=== PATIENT | female | born 1990 | race Caucasian/White ===

== ENCOUNTER → 2018-09-05 14:22 | Outpatient (CLI) | payer BC, SELFPAY ==
[2018-09-05 15:07] LABS: Basophils % 0.5 % (0.1-2.0); Eosinophils # 0.1 K/mm3 (0.0-0.4); Eosinophils % 0.8 % (0.1-12.0); Hematocrit 41.3 % (37.0-47.0); Hemoglobin 14.3 g/dL (12.2-16.2); Lymphocytes # 2.1 K/mm3 (0.7-4.5); Lymphocytes % 26.6 % (10-50); Mean Corpuscular HGB Conc 34.6 g/dL (31.8-35.4); Mean Corpuscular Hemoglobin 30.6 pg (27.0-31.2); Mean Corpuscular Volume 88.5 fl (81-99); Mean Platelet Volume 8.5 fl (7.4-10.4); Monocytes # 0.6 K/mm3 (0.1-1.0); Monocytes % 6.9 % (1.7-9.3); Neutrophils # 5.2 K/mm3 (1.8-7.8); Neutrophils % 65.1 % (37.0-80.0); Platelet Count 247 K/mm3 (142-424); Red Blood Count 4.67 M/mm3 (4.20-5.40); Red Cell Distribution Width 12.2 % (11.5-17.5)
[2018-09-05 18:16] LABS: HCG,Quantitative 784 mIU/mL
[2018-09-07 07:12] LABS: HIV Screen 4th Generation wRfx Non Reactive (Non Reactive)
[2018-09-07 08:12] LABS: Hepatitis B Surface Antigen Negative (Negative); Hepatitis C Antibody <0.1 s/co ratio (0.0-0.9)
[2018-09-07 14:42] LABS: Rapid Plasma Reagin Ab Titer Non Reactive (NonRea<1:1); Rubella Antibodies, IgG 1.74 index (Immune >0.99)
== END ==
PROVIDERS: Visit Provider Nurse Practitioner Obstetrics & Gynecology
DX: Z34.90 Encounter for supervision of normal pregnancy, unspecified, unspecified trimester (principal)
CPT/HCPCS: 36415; 84702; 85025; 86592; 86703; 86762; 86850; 87340; 87380; G0432

== ENCOUNTER → 2018-09-07 09:52 | Outpatient (CLI) | payer BC, SELFPAY ==
[2018-09-07 12:12] LABS: HCG,Quantitative 316 mIU/mL
== END ==
PROVIDERS: Visit Provider Nurse Practitioner Obstetrics & Gynecology
DX: O20.0 Threatened abortion (principal); Z34.90 Encounter for supervision of normal pregnancy, unspecified, unspecified trimester
CPT/HCPCS: 36415; 84702; 85461; 96372; J2790

== ENCOUNTER → 2018-09-12 08:51 | Outpatient (CLI) | payer BC, SELFPAY ==
--- NOTE | 2018-09-12 08:59 | US_ITS ---
US OB transvaginal HISTORY: Chantelle , evaluate for retained products of conception ITS.REASON: US OB Dates ORDERING PHYSICIAN: Andrew Lantigua MD PATIENT AGE: 27 years COMPARISON: None FINDINGS: The uterus is retroverted and measures 7 x 4 x 5 cm with a combined endometrial thickness of 5 mm. No evidence of retained products of conception. The right ovary measures 4 x 2 cm the left ovary measures 3 x 2 cm. Multiple small follicles are noted. No cul-de-sac fluid apparent. IMPRESSION: No evidence of retained products of conception, retroverted uterus, otherwise unremarkable pelvic ultrasound
== END ==
PROVIDERS: Visit Provider Nurse Practitioner Obstetrics & Gynecology
DX: O26.841 Uterine size-date discrepancy, first trimester (principal)
CPT/HCPCS: 76817

== ENCOUNTER → 2018-10-16 10:40 | Outpatient (CLI) | payer BC, SELFPAY ==
[2018-10-16 12:18] LABS: HCG,Quantitative 465 mIU/mL
== END ==
PROVIDERS: Visit Provider Nurse Practitioner Obstetrics & Gynecology
DX: Z32.00 Encounter for pregnancy test, result unknown (principal)
CPT/HCPCS: 36415; 84702

== ENCOUNTER → 2018-11-06 14:53 | Outpatient (CLI) | payer BC, SELFPAY ==
--- NOTE | 2018-11-06 14:54 | US_ITS ---
US OB transvaginal HISTORY: ITS.REASON: US OB Dates ORDERING PHYSICIAN: Andrew Lantigua MD PATIENT AGE: 27 years COMPARISON: None FINDINGS: An intrauterine gestational sac is present with a pole with a crown-rump length of 1.07 cmcm correlating to gestational age of 7 weeks 2 days. heart tones are present with an FHR of 154 bpm's. Yolk sac is noted. Unremarkable adnexa. IMPRESSION: Live intrauterine gestation with an average ultrasound age of 7 weeks 2 days. Estimated due date by ultrasound is 06/23/2019
== END ==
PROVIDERS: Visit Provider Nurse Practitioner Obstetrics & Gynecology
DX: O26.841 Uterine size-date discrepancy, first trimester (principal)
CPT/HCPCS: 76817

== ENCOUNTER → 2019-02-07 14:49 | Outpatient (CLI) | payer BC, SELFPAY ==
--- NOTE | 2019-02-07 14:58 | US_ITS ---
PROCEDURE: US OB /MATERNAL DETAIL CLINICAL INDICATION: us ob complete COMPARISON: OBTV US OB transvaginal from 11/06/2018 FINDINGS: Single viable intrauterine gestation. Cephalic position. Placenta: Posteriorplacenta grade 1. There is average amount fluid. The cervix appears satisfactory. Closed and measuring 5.3 centimeters in length. Complete survey performed and was unremarkable on the submitted images as in PACS. No discrete anomalies identified on survey imaging by technologist. Active fetus. Three-vessel cord with satisfactory umbilical cord insertion. 4- chamber heart noted. Survey of brain & ventricles Unremarkable. Face and neck survey unremarkable. Diaphragm and chest views unremarkable. Abdomen: Both kidneys noted and unremarkable. Stomach noted and satisfactory. Spine: Survey of the spine satisfactory with no anomalies identified nor imaged. Both arms and legs noted. Visualized portions of the anatomy are unremarkable. Amniotic Fluid: Adequate. Maternal adnexa: No significant findings. Measurements: Average ultrasound age 143 days. Gestational Age 143 days Estimated due date by ultrasound age 0206/24/2019. Estimated weight 369.6 gramsgrams. BPD = 4.57 centimeters equals 19 weeks 6 days. OFD = 6.16 centimeters equals 20 weeks 6 days. HC = 17.04 centimeters equals 19 weeks 5 days. AC = 15.58 centimeters equals FL = 20 weeks 6 days. 3.47 centimeters equals 21 weeks. Growth Percentile= 45.4 Percent% Heart Rate = 150 bpm Cerebellum = unremarkable. Humerus = unremarkable. HC/AC is 1.09 CI is 0.74 FL/BPD is 0.76 FL/AC is 0.22 IMPRESSION: Single intrauterine fetus in cephalic presentation with heart rate of 150 beats per minute and estimated gestational age (AUA) of 20 weeks and 3 days. Dictated by: Danny Sanderson 02/07/2019 16:32 Electronically signed by Danny Sanderson in [facility] 02/07/2019 16:32
== END ==
PROVIDERS: Visit Provider Nurse Practitioner Obstetrics & Gynecology
DX: Z36.0 Encounter for antenatal screening for chromosomal anomalies (principal)
CPT/HCPCS: 76811

== ENCOUNTER 2019-03-21 09:30 | Outpatient (CLI) | payer BC, SELFPAY ==
[2019-03-21 10:37] LABS: Glucose,Fasting 82 mg/dL (60-105)
[2019-03-21 11:17] VITALS: BP 117/79; PULSE 75; RESP 18
[2019-03-21 11:17] LABS: Glucose 1 Hour 132 mg/dL (74-106)
== END 2019-03-21 11:17 | disposition home or self-care (01) ==
LOC: LAB 09:31 → INF 11:13
PROVIDERS: Visit Provider Nurse Practitioner Obstetrics & Gynecology
DX: Z34.90 Encounter for supervision of normal pregnancy, unspecified, unspecified trimester (principal)
CPT/HCPCS: 36415; 82951; 96372; J2790

== ENCOUNTER → 2019-05-27 17:27 | Outpatient (CLI) | payer BC, SELFPAY | PROVIDERS: Visit Provider Nurse Practitioner Obstetrics & Gynecology | DX: Z34.90 Encounter for supervision of normal pregnancy, unspecified, unspecified trimester (principal) | CPT/HCPCS: 86403 ==

== ENCOUNTER 2019-07-01 05:06 | Inpatient (IN) ==
[2019-07-01 05:56] LABS: Microscopic, Urine URINE MICROSCOPIC (MICROSCOPIC)
[2019-07-01 05:56] LABS: Basophils % 0.3 % (0.1-2.0); Eosinophils # 0.2 K/mm3 (0.0-0.4); Eosinophils % 1.1 % (0.1-12.0); Hematocrit 34.8 % (37.0-47.0); Hemoglobin 11.5 g/dL (12.2-16.2); Lymphocytes # 3.5 K/mm3 (0.7-4.5); Lymphocytes % 26.7 % (10-50); Mean Corpuscular HGB Conc 32.9 g/dL (31.8-35.4); Mean Corpuscular Volume 91.8 fl (81-99); Monocytes # 0.8 K/mm3 (0.1-1.0); Monocytes % 6.1 % (1.7-9.3); Neutrophils # 8.7 K/mm3 (1.8-7.8); Neutrophils % 65.8 % (37.0-80.0); Platelet Count 243 K/mm3 (142-424); Red Blood Count 3.79 M/mm3 (4.20-5.40); Red Cell Distribution Width 13.5 % (11.5-17.5); White Blood Count 13.2 K/mm3 (4.8-10.8)
[2019-07-01 05:59] LABS: Appearance,Urine SL CLOUDY (Clear); Bilirubin,Urine Negative (Negative); Blood, Urine Negative (Negative); Color,Urine YELLOW (Yellow); Glucose,Urine (UA) Negative (Negative); Ketones,Urine Negative (Negative); Leukocyte Esterase,Urine Negative (Negative); PH,Urine 6.5 (5.0-8.5); Protein,Urine Negative (Negative); Specific Gravity, Urine 1.025 (1.005-1.030); Urobilinogen,Urine 0.2 EU/dl (0.2)
[2019-07-01 06:02] LABS: Amorphous Sediment,Urine 4+ /lpf
[2019-07-01 06:07] LABS: Anion Gap 10.4 mEq/L (5-15); Calcium 10.4 mg/dl (8.4-10.2); Uric Acid 5.2 mg/dl (2.5-6.2)
[2019-07-01 06:08] LABS: Activated Partial Thrombo Time 23.8 seconds (23.6-34.0); INR 0.93 (0.9-1.1); Prothrombin Time 9.7 seconds (9.4-11.8)
[2019-07-01 06:10] LABS: Barbiturates Screen,Urine Negative ng/ml (<200); Benzodiazepines Screen,Urine Negative ng/ml (<200)
[2019-07-01 06:11] LABS: Amphetamine/Metha Screen,Urine Negative ng/ml (<1000)
[2019-07-01 06:12] LABS: Cannabinoid Screen,Urine Negative ng/ml (<50); Cocaine Screen,Urine Negative ng/ml (<300)
[2019-07-01 06:13] LABS: Methadone Screen,Urine Negative ng/ml (<300); Opiate Screen,Urine Negative ng/ml (<300)
[2019-07-01 06:14] LABS: Phencyclidine Screen,Urine Negative ng/ml (<25)
--- NOTE | 2019-07-01 09:48 | Progress Note ---
Labor Note - Subjective: Date: 07/01/19 Time: 09:48 regular contraction - Objective: NST:: Reactive Contractions:: every 2-3 minutes Cervical Dilation:: 4 Effacement:: 90% Station: -1 Membranes: artificially ruptured - Fetus: Monitoring?: Yes monitoring type:: External - Assessment: Labor progressing?: Yes Cephalopelvic disproportion?: No Patient Problems: All Active Problems (Acute) - Plan: Anesthesia for epidural?: Yes Continue to labor down?: Yes Plan for ?: No Continue to monitor?: Yes Start pushing?: No
--- NOTE | 2019-07-01 10:38 | Progress Note ---
[facility] Anesthesia Checklist - Patient Identification Patient Identification: Arm Band - Structural Data Admitted From: Inpatient Planned Operative Procedure/s: labor epidural Consent for Planned Operative Procedure(s) Verified: Yes Verified Documents: Surgical Consent, History and Physical - NPO Status Verified Time NPO: 00:00 - Additional verifications Anesthesia Reactions: No - Airway Assessment C-Spine Mobility Assessed: Yes TMJ Mobility Assessed: Yes Dentition: Good Dentition - Neurological Assessment Level of Consciousness: Awake, Alert - Anesthesia Plan Anesthesia Risk discussed: Yes Anesthesia Plan: Verified ASA Class: II Anesthesia Type: Epidural [facility] History I have reviewed the patient's past medical history: Yes *Have you ever received a pneumonia vaccine?: No *Have you received a flu vaccine this season?: Yes Anesthesia experience/problems:: nac Laterality Cases: Bilateral: Tonsillectomy Other Surgeries: No: Amputation: No Fractures: No - *Social History Smoking Status: Never smoker Alcohol Intake: never Substance Use Type: denies use *Occupational Status:: employed Housing: house Household Members: spouse *Travel in the last 8 weeks: None Family Hx:: Cancer, Diabetes, Heart Attack, Hyperlipidemia, Hypertension Para: 0
--- NOTE | 2019-07-01 12:03 | Progress Note ---
Labor Note - Subjective: Date: 07/01/19 Time: 12:03 regular contraction - Objective: NST:: Reactive Contractions:: every 2-3 minutes Cervical Dilation:: 9-10 Effacement:: 100% Station: +2 Membranes: artificially ruptured - Fetus: Monitoring?: Yes monitoring type:: External - Assessment: Labor progressing?: Yes Cephalopelvic disproportion?: No Patient Problems: All Active Problems (Acute) - Plan: Anesthesia for epidural?: Yes Continue to labor down?: No Plan for ?: No Continue to monitor?: Yes Start pushing?: Yes
--- NOTE | 2019-07-01 12:06 | History & Physical Report ---
OB - H&P: HPI Antepartum - History of Present Illness Chief complaint: Postterm , mild -induced hypertension History of present illness: She is a 28-year-old 2 aborta 1 who is 40+ weeks gestational age. She was seen in my office last week and had a considerable amount of swelling in her face as well as a slight increase in her blood pressure. Initially it was elevated and then with rest it had recovered to normal. She also had brisk reflexes and 2 beats of clonus. As result of that we have elected to augment her labor today. She was found to be 4 cm dilated in my office. - History of Present Criteria for establishing EDC:: LMP confirmed by 1st trimester US care: good care Ultrasounds: normal 1st trimester US, normal mid trimester US Obstetrical complications: gestational hypertension [facility] History I have reviewed the patient's past medical history: Yes *Have you ever received a pneumonia vaccine?: No *Have you received a flu vaccine this season?: Yes Anesthesia experience/problems:: nac Laterality Cases: Bilateral: Tonsillectomy Other Surgeries: No: Amputation: No Fractures: No - *Social History Smoking Status: Never smoker Alcohol Intake: never Substance Use Type: denies use *Occupational Status:: employed Housing: house Household Members: spouse *Travel in the last 8 weeks: None Family Hx:: Cancer, Diabetes, Heart Attack, Hyperlipidemia, Hypertension Para: 0 Review of Systems - Review of Systems Review of systems:: pertinent systems reviewed and negative unless documented below Meds Home Medications Medication Instructions Recorded Confirmed Type loratadine 10 mg tablet 10 mg PO DAILYP PRN 09/05/18 07/01/19 History prenat.vits,wade,lqu-cvpu-sdbla 1 tab PO DAILY 09/05/18 07/01/19 History folic acid 0.8 mg capsule 0.8 mg PO DAILY 11/27/18 07/01/19 History RX: Ferrous Sulfate 325 mg PO DAILY 07/01/19 07/01/19 History Allergies Allergy/AdvReac Type Severity Reaction Status Date / Time hydrocodone Allergy Intermediate vomiting Verified 06/28/19 10:04 OB - H&P: Exam - Physical Exam Vital signs: Temp Pulse Resp BP Pulse Ox 98.3 F 94 H 16 125/89 96 07/01/19 07:17 07/01/19 07:17 07/01/19 07:17 07/01/19 07:17 07/01/19 07:17 - Constitutional no acute distress - Routine HEENT Exam Head: Present: normocephalic Eye: Present: EOMI, PERRL ENT: Present: mucous membranes moist - Routine Neck Exam Present: supple, full ROM - Routine Respiratory Exam Absent: accessory muscle use (good air entry bilaterally), respiratory distress, wheezes, crackles - Routine Cardiovascular Exam Present: RRR. Absent: murmur - Routine Abdominal Exam Present: soft, normoactive bowel sounds. Absent: tenderness, distended, guarding - Routine Rectal Exam Patient deferred: visual exam, digital exam - Routine Exam Patient deferred: external exam, groin exam, perineal exam - Routine Extremities Exam Present: full ROM. Absent: cyanosis, edema - Routine Skin Exam Present: intact. Absent: cyanosis - Routine Neurological Exam Present: alert, oriented X3 - Routine Psychiatric Exam Present: normal affect OB - Results - Labs Labs: Short CBC 07/01/19 Range/Units 05:45 WBC 13.2 H (4.8-10.8) K/mm3 Hgb 11.5 L (12.2-16.2) g/dL Hct 34.8 L (37.0-47.0) % Plt Count 243 (142-424) K/mm3 BMP 07/01/19 05:45 Sodium 134 L Potassium 3.4 L Chloride 106 Carbon Dioxide 21 L BUN 12 Creatinine 0.70 Glucose 105 H Calcium 10.4 H Liver Function 07/01/19 Range/Units 05:45 AST 23 (14-36) U/L ALT 17 (12-78) U/L Urine 07/01/19 Range/Units 05:20 Urine Color Yellow (Yellow) Urine Appearance Sl cloudy (Clear) Urine pH 6.5 (5.0-8.5) Ur Specific [place] 1.025 (1.005-1.030) Urine Protein Negative (Negative) Urine Glucose (UA) Negative (Negative) OB - A/P Antepartum (1) Post-term Current visit: Yes Status: Acute (2) induced hypertension Current visit: Yes Status: Acute - Additional Plan Planning to breastfeed?: Yes Plan: induction Additional Information:: She is currently 3 to 4 cm dilated and as result of that we will go ahead and augment her labor. Her blood pressures have been slightly up and down as well.
--- NOTE | 2019-07-01 12:10 | Progress Note ---
[facility] [place] Anesthesia Checklist - Patient Identification Patient Identification: Arm Band - Structural Data Admitted From: Home Planned Operative Procedure/s: colonoscopy Consent for Planned Operative Procedure(s) Verified: Yes Verified Documents: Surgical Consent, History and Physical - NPO Status Verified Time NPO: 00:00 - Additional verifications Anesthesia Reactions: No - Airway Assessment C-Spine Mobility Assessed: Yes (mp2) TMJ Mobility Assessed: Yes Dentition: Good Dentition - Neurological Assessment Level of Consciousness: Awake, Alert - Anesthesia Plan Anesthesia Risk discussed: Yes Anesthesia Plan: Verified ASA Class: II Anesthesia Type: MAC [facility] [place] History I have reviewed the patient's past medical history: Yes Medical History: Reports:: Anxiety, Hypertension *Have you ever received a pneumonia vaccine?: No *Have you received a flu vaccine this season?: Yes Other Medical History: Reports: Hypothyroidism Anesthesia experience/problems:: nac Laterality Cases: Bilateral: Tonsillectomy Other Surgeries: Yes: Tubal Ligation, Other. No: Amputation: No Fractures: No - *Social History Smoking Status: Never smoker Alcohol Intake: never Substance Use Type: denies use *Occupational Status:: employed Housing: house Household Members: spouse *Travel in the last 8 weeks: None Family Hx:: Cancer, Diabetes, Heart Attack, Hyperlipidemia, Hypertension Para: 0
--- NOTE | 2019-07-01 13:39 | Procedure Note ---
- Delivery Note Delivery Date:: 07/01/19 Delivery Time:: 13:17 Anesthesia Type: Epidural Was labor medically induced?: Yes Induction method: per pitocin protocol Gestational age (weeks): 40 Infant delivered prior to 39 weeks?: No Justification for early elective delivery:: Gestational Hypertension, Post term Gender: Female at 1 minute: 8 at 5 minutes: 8 LAC or MLE?: LAC Delivery Procedure:: She is a 28-year-old 2 para 0 at 40+ weeks gestational age. Her blood pressure was slightly elevated so we elected to induce her labor postterm. She was started on IV oxytocin had her membranes ruptured. Under labor epidural she progressed to full dilation and delivered with the assistance of outlet forceps a liveborn female child at 1:17 PM in the afternoon of July 01, 2019. The descent seem to be stalled so I elected to apply forceps. The patient was also quite fatigued. I applied forceps in the direct OA position and had previously emptied her bladder with a straight catheter. I used Allen forceps with pads. Using a long gentle pull I was able to easily deliver the head. There was a loose nuchal cord which was reduced. This was followed by the anterior shoulder and the rest the 's body atraumatically. The baby was vigorous and we suctioned the mouth and nasopharynx. We allowed the cord to continue to pulsate for approximately 1 minute. The cord is then doubly clamped and cut and the was placed on the mother's abdomen for further care. The nurses assigned Apgars of 8 at 1 minute and 9 at 5 minutes. We then obtained cord pH as well as cord blood. She received IV oxytocin. Using gentle traction on the cord and countertraction on the fundus I was able to easily deliver the placenta intact. It had a normal three-vessel cord. She had bilateral labial tears that were repaired with interrupted running 3-0 Vicryl Rapide suture. She has O Rh- blood, she is rubella immune and was group B streptococcus negative. She plans to breast-feed. Her sales service manager is Dr. Lee. Estimated blood loss was approximately 600 cc. Laceration:: labial Placental Delivery Description: Spontaneous
[2019-07-02 07:00] LABS: Hematocrit 26.3 % (37.0-47.0)
--- NOTE | 2019-07-02 08:17 | Progress Note ---
Internal Medicine - PN: Subj *Date: 07/02/19 *Time: 08:16 Interval history: She is doing very well this morning. She is eating and drinking and ambulating. She is breast-feeding. Her lochia is normal. Her pain is well controlled. She still has some perineal discomfort. Exam Vital signs and Labs for Last 24 Hours: Temp Pulse Resp BP Pulse Ox 97.6 F 101 H 18 121/83 98 07/01/19 15:45 07/01/19 15:45 07/01/19 15:45 07/01/19 15:45 07/01/19 15:45 Laboratory Results - last 24 hr 07/01/19 05:20: Urine Color Yellow, Urine Appearance Sl cloudy, Urine pH 6.5, Ur Specific [place] 1.025, Urine Protein Negative, Urine Glucose (UA) Negative, Urine Ketones Negative, Urine Blood Negative, Urine Nitrate Negative, Urine Bilirubin Negative, Urine Urobilinogen 0.2, Ur Leukocyte Esterase Negative, Ur Squamous Epith Cells 10-20, Amorphous Sediment 4+ 07/01/19 05:20: Urine Opiates Screen Negative, Urine Methadone Screen Negative, Ur Barbituates Screen Negative, Ur Phencyclidine Scrn Negative, Ur Amphetamines Screen Negative, U Benzodiazepines Scrn Negative, Urine Cocaine Screen Negative, U Marijuana (THC) Screen Negative 07/01/19 05:45: Blood Type O Negative, Antibody Screen Positive 07/01/19 13:20: Cord ABG pH 7.29 L 07/02/19 06:24: Hgb 9.0 L, Hct 26.3 L 07/02/19 06:24: Blood Type O Negative, Antibody Screen Negative, Baby's Rh Status Positive 07/02/19 07:59: Rhogam Infusion Rhogam release I & O for Last 24 hours: Intake & Output 06/29/19 06/30/19 07/01/19 07/02/19 11:59 11:59 11:59 11:59 Weight 169 lb - Constitutional no acute distress - *Routine HEENT Exam Head: Present: normocephalic Eye: Present: EOMI, PERRL ENT: Present: mucous membranes moist Assessment and Plan (1) Post-term Current visit: Yes Status: Acute Category: Medical Code(s): O48.0 - Post- term (2) induced hypertension Current visit: Yes Status: Acute Category: Medical Code(s): O13.9 - Gestational [-induced] hypertension without significant proteinuria, unspecified trimester (3) Forceps delivery Current visit: Yes Status: Acute Category: Medical Code(s): O75.9 - Complication of labor and delivery, unspecified - Assessment and plan all Dx Assessment and Plan for all problems:: She is doing well this morning. She will receive RhoGam. We will plan to send her home tomorrow.
[2019-07-02 16:35] VITALS: BP 116/64
--- NOTE | 2019-07-03 10:00 | Discharge Summary ---
General - General Admission date:: 07/01/19 Discharge date: 07/03/19 HPI HPI: She is a 28-year-old 2 para 0 who was 40+ weeks gestational age. She had slightly elevation her blood pressure and swelling. As result of that we elected her deliver her. She was also postdates. Hospital Course Hospital Course: She was started on IV oxytocin had her membranes ruptured. Under labor epidural she progressed to full dilation and delivered with the assistance of I would like forceps a liveborn female child at 1:17 PM in the afternoon of July 01, 2019. She has done well and has remained afebrile throughout her hospitalization. She is eating and drinking and ambulating. She is breast- feeding. The baby weighed 8 pounds 9 ounces and was 20 inches long. She had Apgars of 8 at 1 minute and 9 at 5 minutes. She has O Rh- blood and has received RhoGam. She is rubella immune and was group B streptococcus negative. She is discharged home to follow-up with me in approximately 2 weeks time. She was given the usual instructions with SPECT to limiting her activity, driving and sexual activity. She will continue with her vitamins and iron. Her condition on discharge is stable and improved. Rhogam Administration: Given Objective Vital signs: Temp Pulse Resp BP Pulse Ox 98.4 F 103 H 18 116/64 98 07/02/19 16:18 07/02/19 16:18 07/02/19 16:18 07/02/19 16:18 07/02/19 16:18 no acute distress DS: Diagnosis - Discharge Diagnosis (1) Post-term Status: Acute (2) induced hypertension Status: Acute (3) Forceps delivery Status: Acute Discharge Plan - Patient Discharge Instructions ACTIVITY: No heavy lifting DIET: continue same diet Additional Instructions: FOLLOW-UP WITH DR. LANTIGUA 07/16/2019 AT 11:15 NO HEAVY LIFTING, NO STRENUOUS ACTIVITY, NOTHING IN THE VAGINA FOR 6 WEEKS. Patient Instructions: Depression, Hemorrhage, DI for Labor and Delivery, Vaginal , [facility] Post Discharge Instructions - Follow up Plan Follow up with: Andrew Lantigua MD [Staff Physician] - Disposition: Home, Self-Group Home Medications: Home Medications Medication Instructions Recorded Confirmed Type loratadine 10 mg tablet 10 mg PO DAILYP PRN 09/05/18 07/01/19 History prenat.vits,wade,kui-vgst-umxai 1 tab PO DAILY 09/05/18 07/01/19 History folic acid 0.8 mg capsule 0.8 mg PO DAILY 11/27/18 07/01/19 History Ferrous Sulfate 325 mg PO DAILY 07/01/19 07/01/19 History Prescriptions/Medication Reconciliation: Continued loratadine 10 mg tablet 10 mg PO DAILYP PRN PRN Reason: ALLERGY SYMPTOMS folic acid 0.8 mg capsule 0.8 mg PO DAILY prenat.vits,wade,cna-kuyc-xvtyc 1 tab PO DAILY Ferrous Sulfate 325 mg PO DAILY - Problem Reconciliation Problems Reviewed?: Yes
--- NOTE | 2019-07-03 11:47 | Progress Note ---
Labor Note - Subjective: Date: 07/03/19 Time: 11:46 regular contraction - Objective: NST:: Reactive Contractions:: every 2-3 minutes Cervical Dilation:: 6 Effacement:: 100% Station: -1 Membranes: artificially ruptured - Fetus: Monitoring?: Yes monitoring type:: External - Assessment: Labor progressing?: Yes Cephalopelvic disproportion?: No Patient Problems: All Active Problems Post-term (Acute) induced hypertension (Acute) Forceps delivery (Acute) (Acute) - Plan: Anesthesia for epidural?: No Continue to labor down?: Yes Plan for ?: No Continue to monitor?: Yes Start pushing?: No
== END 2019-07-03 10:30 | disposition home or self-care (01) | DRG 807 ==
LOC: OB 05:06
PROVIDERS: ADMIT Nurse Practitioner Obstetrics & Gynecology; ATTEND Nurse Practitioner Obstetrics & Gynecology
DX: O70.0 First degree perineal laceration during delivery; Z37.0 Single live birth; O32.4XX0 Maternal care for high head at term, not applicable or unspecified; O13.3 Gestational [pregnancy-induced] hypertension without significant proteinuria, third trimester; Z3A.40 40 weeks gestation of pregnancy; O66.5 Attempted application of vacuum extractor and forceps; O75.81 Maternal exhaustion complicating labor and delivery; O69.81X0 Labor and delivery complicated by cord around neck, without compression, not applicable or unspecified
CPT/HCPCS: 59025; 80048; 80305; 81001; 82800; 84450; 84460; 84550; 85014; 85018; 85025; 85378; 85384; 85461; 85610; 85730; 86850; 86870; 94761; J2790

== ENCOUNTER 2021-10-03 12:45 | Emergency (ER) | payer BC, SELFPAY ==
[2021-10-03 13:10] VITALS: BP 135/87; PULSE 82; RESP 18; TEMP 36.9; O2SAT 98; BMI 20.5
--- NOTE | 2021-10-03 13:33 | [facility].EDUTC ---
[facility] [place] Clinical Impression: URI (upper respiratory infection) Qualifiers: URI type: unspecified URI Qualified Code(s): J06.9 - Acute upper respiratory infection, unspecified Disposition: Home, Self-Care Condition on Discharge: Good Instructions: Sore Throat, DI for Sinusitis Additional Instructions: *Monitor Temp, Over the counter Motrin or Tylenol as directed/as needed Tylenol every 4 hours and Motrin every 6 hours (as long as your family doctor has told you that you can take it) for fever or pain. and straight to ER if unable to lower temp less than 101.0 after medication given *Warm salt water gargles may help to soothe the throat *Throat Lozenges *Warm fluids like tea with honey may help to soothe the throat *Sleep elevated *Humidifier/Vaporizer *Flonase 2 sprays in each nostril daily but be aware that it may take 2-3 days before you notice improvement Follow up IMMEDIATELY for new or worsening symptoms or no Noticeable improvement over the next 48-72 hours. 911 for difficulty breathing or swallowing You were tested for today for upper respiratory Panel COVID19 your test result should be back in the next 24-48 hours, you may check your results on the [facility] Prescriptions: guaiFENesin [Mucinex 600mg tablet] 1 - 2 tab PO Q12HP PRN #20 tab PRN Reason: Congestion Transmission Status: Pending to [facility] methylPREDNISolone [Medrol 4mg tab] 4 mg PO DIRECTED #21 tab Transmission Status: Pending to [facility] Azithromycin [Z-Ananth 250mg Tab] 250 mg PO DIRECTED #6 tab Transmission Status: Pending to [facility] Referrals: Luis Antonio Knott [Primary Care Provider] - As needed Time of Disposition: 13:40 Medical Decision Making - Ilir Inquiry Pt receiving controlled substance: No Ilir was queried for this patient: No Vital Signs: 10/03/21 13:10 Temperature 98.4 F Temperature Source Oral Pulse Rate [Right Brachial] 82 Respiratory Rate 18 Blood Pressure [Right Arm] 135/87 Blood Pressure Mean [Right Arm] 103 Blood Pressure Source [Right Arm] Automatic Cuff Blood Pressure Position [Right Arm] Sitting 02 Sat by Pulse Oximetry 98 Oxygen Delivery Method Room Air Medical Decision Narrative: denies states that she has [facility] HPI - General Stated complaint: FEVER,COUGH.BODY ACHES Time Seen by Provider: 10/03/21 13:33 Mode of Arrival: Ambulatory Source of Information: Patient Limitations: No Limitations Description of Symptoms (Recalled from Triage Doc. by RN): PATIENT C/O FEVER, FATIGUE, COUGH, AND SINUS DRAINAGE X 3 DAYS HEENT Symptoms (Recalled from RN notes): No Resp Symptoms (Recalled from RN notes): Yes Skin Symptoms (Recalled from RN notes): No MS Symptoms (Recalled from RN notes): No Functional Status (Recalled from RN notes): WNL - History of Present Illness Provider Complaint: Patient states that she has been sick on and off for several weeks but for the last week she has been having sinus pressure, drainage in the back of her throat and cough States that she feels like she is clearing her throat alot due to the drainage so she came in to get checked - Related Data Home Medications Medication Instructions Recorded Confirmed prenat.vits,wade,tfo-liyg-zsehy 1 tab PO DAILY 09/05/18 09/19/19 ferrous sulfate 325 mg (65 mg PO 08/08/19 09/19/19 iron) tablet Previous Rx's Medication Instructions Recorded Azithromycin [Z-Ananth 250mg Tab] 250 mg PO DIRECTED #6 tab 10/03/21 guaiFENesin [Mucinex 600mg tablet] 1 - 2 tab PO Q12HP PRN #20 tab 10/03/21 methylPREDNISolone [Medrol 4mg 4 mg PO DIRECTED #21 tab 10/03/21 tab] Allergies Allergy/AdvReac Type Severity Reaction Status Date / Time hydrocodone Allergy Intermediate vomiting Verified 09/19/19 10:56 - Worker's Comp Is this a Worker's Comp case?: No [facility] History - Hepatitis A Screen Attestation statement:: This patient has been screened
[2021-10-03 13:45] VITALS: BP 135/87; PULSE 82; RESP 18; TEMP 36.9; O2SAT 98
[2021-10-03 14:02] LABS: Adenovirus,PCR Not Detected (NotDetected); Bordetella Pertussis Not Detected (NotDetected); Chlamydophila Pneumoniae, PCR Not Detected (NotDetected); Coronavirus 229E Not Detected (NotDetected); Coronavirus NL63 Not Detected (NotDetected); Coronavirus OC43 Not Detected (NotDetected); Coronovirus HKU1,PCR Not Detected (NotDetected); Human Metapneumovirus Not Detected (NotDetected); Influenza A, PCR Not Detected (NotDetected); Influenza AH1, 2009 Not Detected (NotDetected); Influenza AH1, PCR Not Detected (NotDetected); Influenza AH3,PCR Not Detected (NotDetected); Influenza B, PCR Not Detected (NotDetected); Mycoplasma Pneumoniae, PCR Not Detected (NotDetected); Parainfluenza 1, PCR Not Detected (NotDetected); Parainfluenza 2, PCR Not Detected (NotDetected); Parainfluenza 3, PCR Not Detected (NotDetected); Parainfluenza 4, PCR Not Detected (NotDetected); Respiratory Syncytial Virus Not Detected (NotDetected); Rhinovirus/Enterovirus Not Detected (NotDetected)
== END 2021-10-03 14:03 | disposition home or self-care (01) ==
PROVIDERS: Emergency Provider Nurse Practitioner; PCP Family Medicine
DX: J06.9 Acute upper respiratory infection, unspecified (principal)
CPT/HCPCS: 87486; 87581; 87632; 87798; 96372; 99212; G0463

== ENCOUNTER 2023-11-07 14:15 | Outpatient (CLI) | payer BC, SELFPAY ==
[2023-11-07 15:20] LABS: HCG,Quantitative 112 mIU/ml (0-5.42)
[2023-11-09 12:12] LABS: Progesterone 3.1 ng/mL (.)
== END 2023-11-07 23:59 | disposition home or self-care (01) ==
LOC: LAB 14:16
PROVIDERS: PCP Family Medicine; Visit Provider Nurse Practitioner Obstetrics & Gynecology
DX: N92.6 Irregular menstruation, unspecified (principal)
CPT/HCPCS: 84144; 84702

== ENCOUNTER 2023-11-10 10:21 | Outpatient (CLI) | payer BC, SELFPAY ==
[2023-11-10 11:27] LABS: HCG,Quantitative 111 mIU/ml (0-5.42)
== END 2023-11-10 23:59 | disposition home or self-care (01) ==
LOC: LAB 10:22
PROVIDERS: PCP Family Medicine; Visit Provider Nurse Practitioner Obstetrics & Gynecology
DX: Z34.90 Encounter for supervision of normal pregnancy, unspecified, unspecified trimester (principal)
CPT/HCPCS: 36415; 84702

== ENCOUNTER 2024-03-18 09:24 | Outpatient (CLI) | payer BC, SELFPAY ==
[2024-03-18 10:25] LABS: HCG,Quantitative 8316 mIU/ml (0-5.42)
== END 2024-03-18 23:59 | disposition home or self-care (01) ==
LOC: LAB 09:27
PROVIDERS: PCP Family Medicine; Visit Provider Nurse Practitioner Obstetrics & Gynecology
DX: Z34.90 Encounter for supervision of normal pregnancy, unspecified, unspecified trimester (principal)
CPT/HCPCS: 36415; 84144; 84702

== ENCOUNTER 2024-03-20 13:29 | Outpatient (CLI) | payer BC, SELFPAY ==
[2024-03-20 14:43] LABS: HCG,Quantitative 12990 mIU/ml (0-5.42)
== END 2024-03-20 23:59 | disposition home or self-care (01) ==
LOC: LAB 13:30
PROVIDERS: PCP Family Medicine; Visit Provider Nurse Practitioner Obstetrics & Gynecology
DX: Z34.90 Encounter for supervision of normal pregnancy, unspecified, unspecified trimester (principal)
CPT/HCPCS: 36415; 84702

== ENCOUNTER 2024-04-01 10:13 | Outpatient (CLI) | payer BC, SELFPAY | END 2024-04-01 23:59 | disposition home or self-care (01) | LOC: LAB.DROPOF 04-02 10:14 | PROVIDERS: PCP Nurse Practitioner Obstetrics & Gynecology; Visit Provider Nurse Practitioner Obstetrics & Gynecology | DX: Z34.81 Encounter for supervision of other normal pregnancy, first trimester (principal) | CPT/HCPCS: 87086 ==

== ENCOUNTER 2024-04-12 12:48 | Outpatient (CLI) | payer BC, SELFPAY ==
--- NOTE | 2024-04-12 12:49 | US_ITS ---
PROCEDURE: US OB <= 14 WEEKS FETUS CLINICAL INDICATION: Dates /Confirmation of COMPARISON: No exams were available for comparison FINDINGS: Transvaginal sonographic images of the pelvis were obtained. The uterus is retroverted. From her last menstrual period she is 9weeks 1day. An intrauterine gestational sac is present with a pole with a crown-rump length of 0.58cm This correlates to a gestational age of 6weeks 3days. heart tones are absent. Yolk sac is not seen. The right ovary is seen and appears normal. There is a corpus luteum measuring 1.2 cm. The left ovary is seen and appears normal. There are multiple small peripheral follicles There is no fluid in the cul-de-sac. IMPRESSION: 1. Non-viable fetus within the uterine cavity. heart tones are absent . 2. There is a corpus luteum in the right ovary. 3. No fluid in the cul de sac. Dictated by: Andrew Lantigua MD 04/13/2024 06:03 Andrew Lantigua MD in [facility] 04/13/2024 06:03
[2024-04-12 16:24] LABS: HCG,Quantitative 33383 mIU/ml (0-5.42)
== END 2024-04-12 23:59 | disposition home or self-care (01) ==
PROVIDERS: Obstetrics & Gynecology; PCP Family Medicine; Visit Provider Nurse Practitioner Obstetrics & Gynecology
DX: O36.80X0 Pregnancy with inconclusive fetal viability, not applicable or unspecified (principal); O03.9 Complete or unspecified spontaneous abortion without complication; Z3A.00 Weeks of gestation of pregnancy not specified
CPT/HCPCS: 36415; 76801; 84702

== ENCOUNTER 2024-04-14 13:23 | Outpatient (CLI) | payer BC, SELFPAY ==
[2024-04-14 15:08] LABS: HCG,Quantitative 30718 mIU/ml (0-5.42)
== END 2024-04-14 23:59 | disposition home or self-care (01) ==
LOC: LAB 13:24
PROVIDERS: Visit Provider Obstetrics & Gynecology
DX: O03.9 Complete or unspecified spontaneous abortion without complication (principal)
CPT/HCPCS: 36415; 84702

== ENCOUNTER 2024-04-24 17:28 | Emergency (ER) | payer BC, SELFPAY ==
[2024-04-24] VITALS (12 sets, daily range): BP systolic 109–127; BP diastolic 65–92; PULSE 95–144; RESP 14–20; TEMP 36.6–36.8; O2SAT 97–100; BMI 19.7
--- NOTE | 2024-04-24 17:40 | HMH.EDGENADL ---
Discharge Plan Disposition Chief Complaint: Vaginal Bleeding Prescriptions Prescriptions: No Action Classic 28 mg iron- 800 mcg tablet 1 tab PO .Светлана Referrals Follow up/Referrals: Provider,Referral, [Referring] - See instructions Print Language Print Language: Omani Discharge ED Provider: Dick Liriano General Adult HPI General Chief complaint: Vaginal Bleeding Stated complaint: poss miscarrage Time Seen by Provider: 04/24/24 17:30 Mode of Arrival: Ambulatory Source of Information: Patient Limitations: No Limitations History of Present Illness HPI narrative: This is a 33-year-old female with a past medical history of previous miscarriages who presents with vaginal bleeding in the setting of . States that her last menstrual period was on 02/08/24. States that she was told that she had an incomplete at 6 weeks and has been undergoing expectant management. States she began to have some spotting about 8 days ago, however bleeding has worsened over the last several days and that about 1 hour prior to arrival she has had heavy bleeding. Has soaked through multiple pads. States that she is having lower abdominal cramping. Related Data Home Medications ?Medication ?Instructions ?Recorded ?Confirmed vits no.126-ferrous fum 1 tab PO .Светлана 04/01/24 04/16/24 28 mg iron-folic acid 800 mcg tablet (Classic ) Allergies Allergy/AdvReac Type Severity Reaction Status Date / Time hydrocodone Allergy Intermediate vomiting Verified 04/16/24 15:28 [facility] Disclaimer: The information contained in this section may have been updated after the patient was seen, as this information can be updated by other users. Medical History No significant past medical history Surgical History History of tonsillectomy and adenoidectomy Family History Father Hypertension Grandfather Heart attack Diabetes Other Cancer Social History Smoking Status: Never smoker alcohol intake: current alcohol intake frequency: holidays/special occasions only substance use type: denies use current occupational status: other Travel in the last 8 weeks: None household members: spouse housing: house Have you lived/traveled outside [place] in past 30 days?: No Contact w/someone who lives/traveled outside US past 30 days?: No Exposure to someone with infectious disease in past 14 days?: No Do you have a fever (greater than 100.4 F or 38 C)?: No Have you tested positive for COVID-19: No Exposed to someone with COVID-19 in past 14 days?: No Do you have a sore throat?: No Do you have a cough?: No Do you have any weakness?: No Do you have any diarrhea?: No Are you experiencing any unusual bleeding?: No Do you have any muscle aches/pain?: No Do you have any abdominal pain?: No Are you experiencing loss of taste or smell?: No Other Medical History Have you received the Flu Vaccine for this season: No Have you received the Pneumonia Vaccine: No ROS Obtained: Yes All systems reviewed & no additional complaints except as documented Physical Exam General General appearance: alert and in no apparent distress Eye Eye exam: Present normal appearance, PERRL and EOMI Respiratory Respiratory exam: Present normal lung sounds bilaterally; Absent respiratory distress Cardiovascular Cardiovascular exam: Present regular rate and normal rhythm Abdominal Exam Abdominal exam: Present soft and distention; Absent tenderness, guarding or rebound Extremities Exam Extremities exam: Present normal inspection Neurological Exam Neurological exam: Present alert and oriented X3 Skin Skin exam: Present warm and dry Medical Decision Making Medical Records Medical records reviewed: Yes I reviewed the patient's medical records. Screening: Per USPSTF and CDC recommendations, given the prevalence of disease in our region, it is our hospital?s policy to screen for HIV and viral Hepatitis for all patients aged 18 and over and those with ongoing risk factors. Ilir Inquiry Pt receiving controlled substance: No Vital Signs: 04/24/24 17:28 04/24/24 18:00 04/24/24 18:47 Temperature 98.2 F Temperature Source Oral Pulse Rate 102 H 125 H Pulse Rate [Left Radial] 115 H Respiratory Rate 20 Blood Pressure 112/82 127/92 H Blood Pressure [Right Arm] 120/77 Blood Pressure Mean 87 Blood Pressure Mean [Right Arm] 91 02 Sat by Pulse Oximetry 100 100 100 Oxygen Delivery Method Room Air Lab Data Lab Results 04/24/24 17:42: WBC 9.0, RBC 4.56, Hgb 13.9, Hct 40.5, MCV 88.8, MCH 30.5, MCHC 34.3, RDW 11.8, Plt Count 207, MPV 10.9 H, Neut % (Auto) 60.8, Lymph % (Auto) 28.2, [place] % (Auto) 7.8, Eos % (Auto) 2.4, Baso % (Auto) 0.6, Neut # (Auto) 5.5, Lymph # (Auto) 2.5, [place] # (Auto) 0.7, Eos # (Auto) 0.2, Baso # (Auto) 0.1, Sodium 138, Potassium 3.5, Chloride 104, Carbon Dioxide 25, Anion Gap 12.5, BUN 16, Creatinine 0.90, Estimated Creat Clear 81, Estimated GFR 73, Est GFR ( Amer) 88, Glucose 109 H, Calcium 9.9, Total Bilirubin 0.5, AST 30, ALT 28, Alkaline Phosphatase 56, Total Protein 7.9, Albumin 4.9, Globulin 3.0, Albumin/Globulin Ratio 1.6, Blood Type O Negative 04/24/24 17:42 04/24/24 17:42 Orders (Tests/Meds): ED MEDICATIONS Generic Name Dose Route Start Last Admin Trade Name Freq PRN Reason Stop Dose Admin Lactated Ringer's 1,000 mls @ 999 mls/hr 04/24/24 18:49 04/24/24 18:56 Lactated Ringer's 1000 Ml Bag IV 04/24/24 19:49 999 mls/hr .Q1H1M ONE Administration ORDERS Category Date Time Status Type and Screen Stat BBK 04/24/24 17:42 Results Beta HCG, Quant [HCG,Quantitative] Stat Lab 04/24/24 17:42 Results CBC w/Auto Diff [Complete Blood Count Auto Diff] Stat Lab 04/24/24 17:42 Completed CMP [Comprehensive Metabolic Panel] Stat Lab 04/24/24 17:42 Results US OB transvaginal Stat Ultrasound 04/24/24 17:41 Taken Medical Decision Narrative: In summary, this 33-year-old female presents to the emergency department today with vaginal bleeding in the setting of with last menstrual period 02/08/2024. On initial evaluation patient is hemodynamically stable, no acute distress, with active vaginal bleeding. Differential diagnosis includes but is not limited to ectopic , incomplete miscarriage, complete miscarriage, anemia, hemorrhagic shock. Based on these concerns, I ordered CBC, CMP, quantitative beta-hCG, type and screen, transvaginal. Labs personally reviewed demonstrate hemoglobin of 13.9, unremarkable CMP,. Ultrasound was independently interpreted by me, revealing retained products of conception. Administered 1 L of lactated Ringer's due to. Persistent tachycardia to the 130s. Consulted NAME PLATE STAMPING MACHINE OPERATOR who agreed to see the patient and ultimately plan to take the patient for a D&C tonight. Patient taken directly to OR Critical Care Critical Care Time Critical Care Time: No
--- NOTE | 2024-04-24 17:41 | US_ITS ---
PROCEDURE INFORMATION: Exam: US Pelvis, Transvaginal, Non-Obstetric, US Duplex Artery and Vein of the Reproductive Organs, Complete Exam date and time: 04/24/2024 6:13 PM Age: 33 years old Clinical indication: Lmp or gestational age (in weeks): N/a; Other: Miscarriage; TECHNIQUE: Imaging protocol: Real-time transvaginal pelvic (non-obstetric) ultrasound with image documentation. Transvaginal imaging was used for better evaluation of the endometrium, adnexa, and/or cervix. Real-time duplex ultrasound scan of the arterial and venous flow of the abdominal and/or reproductive organs with B-mode, color Doppler flow and spectral waveform analysis with image documentation. Exam focused on the region of clinical concern. Complete exam. Duplex exam was performed to evaluate for vascular conditions. COMPARISON: US OB <= 14 WEEKS FETUS 04/12/2024 1:01 PM FINDINGS: Uterus: Uterus demonstrates poorly delineated heterogeneously thickened hyperemic endometrium measuring approximately 2.4 cm in thickness containing debris, blood/fluid in the region of the fundus. Fluid with retained products of conception in the lower uterine segment extending into the endocervical canal. Right ovary/adnexa: Right ovary measures 1.84 cm x 2.45 cm. Complex corpus luteal cyst/follicle measuring approximately 1.5 x 1.6 x 1.6 cm Left ovary/adnexa: Left ovary measures 3.41 cm x 1.53 cm x 1.7 cm. Left ovarian volume is 4.64 mL. Multiple small anechoic follicles. Doppler: Doppler examination of the LEFT ovary with pulsed wave and color images was performed which demonstrate arterial/venous waveforms within normal limits. Urinary bladder: NA Intraperitoneal space: No in the pelvis. IMPRESSION: 1. Findings consistent with ongoing/incomplete and retained products of conception. 2. No sonographic evidence of a viable intrauterine or an ectopic .
[2024-04-24 17:59] LABS: Hemoglobin 13.9 g/dL (12.2-16.2); Red Blood Count 4.56 M/mm3 (4.20-5.40)
[2024-04-24 18:00] LABS: Basophils # 0.1 K/mm3 (0-0.2); Basophils % 0.6 % (0.1-2.0); Eosinophils # 0.2 K/mm3 (0.0-0.4); Eosinophils % 2.4 % (0.1-12.0); Hematocrit 40.5 % (37.0-47.0); Lymphocytes # 2.5 K/mm3 (0.7-4.5); Lymphocytes % 28.2 % (10-50); Mean Corpuscular HGB Conc 34.3 g/dL (31.8-35.4); Mean Corpuscular Hemoglobin 30.5 pg (27.0-31.2); Mean Corpuscular Volume 88.8 fl (81-99); Mean Platelet Volume 10.9 fl (7.4-10.4); Monocytes # 0.7 K/mm3 (0.1-1.0); Monocytes % 7.8 % (1.7-9.3); Neutrophils # 5.5 K/mm3 (1.8-7.8); Neutrophils % 60.8 % (37.0-80.0); Platelet Count 207 K/mm3 (142-424); Red Cell Distribution Width 11.8 % (11.5-17.5)
--- NOTE | 2024-04-24 18:05 | PC.NURSE ---
MODERATE AMOUNT OF VAGINAL BLEEDING AND CLOTS NOTED. PT CLEANED UP, DR REYES NOTIFIED
[2024-04-24 18:08] LABS: Alanine Aminotransferase 28 U/L (12-78); Albumin Level 4.9 g/dl (3.5-5.0); Albumin/Globulin Ratio 1.6 (1.1-1.8); Alkaline Phosphatase 56 U/L (38-126); Anion Gap 12.5 mEq/L (5-15); Aspartate Amino Transferase 30 U/L (14-36); Bilirubin,Total 0.5 mg/dl (0.2-1.3); Blood Urea Nitrogen 16 mg/dl (7-17); Calcium 9.9 mg/dl (8.4-10.2); Carbon Dioxide 25 mmol/L (22.0-30.0); Chloride 104 mmol/L (98-107); Creatinine Clearance Estimated 81 mL/min (50-200); Estimated Glomerular Filt Rate 73 ml/min (>60); GFR (African American) 88 ML/MIN (>60); Glucose 109 mg/dl (74-100); Potassium 3.5 mmoL/L (3.5-5.1); Sodium 138 mmol/L (136-145); Total Protein,Serum 7.9 g/dl (6.3-8.2)
--- NOTE | 2024-04-24 18:08 | PC.NURSE ---
DR ANASTACIO POWELL
--- NOTE | 2024-04-24 18:10 | PC.NURSE ---
DR REYES SPEAKING WITH DR CHAVES
--- NOTE | 2024-04-24 18:49 | PC.NURSE ---
SURGERY TEAM PAGED
--- NOTE | 2024-04-24 18:55 | PC.NURSE ---
page made to dr coleman to call [facility]
[2024-04-24] MEDS: LACTATED RINGERS 1000ML 1,000 ML 999 ML IV (18:56)
[2024-04-24 19:02] LABS: HCG,Quantitative 15294 mIU/ml (0-5.42)
--- NOTE | 2024-04-24 19:07 | P.PNANES_ITS ---
[facility] Disclaimer: The information contained in this section may have been updated after the patient was seen, as this information can be updated by other users. Medical History No significant past medical history Surgical History History of tonsillectomy and adenoidectomy Family History Father Hypertension Grandfather Heart attack Diabetes Other Cancer Social History Smoking Status: Never smoker alcohol intake: current alcohol intake frequency: holidays/special occasions only substance use type: denies use current occupational status: other Travel in the last 8 weeks: None household members: spouse housing: house Have you lived/traveled outside US in past 30 days?: No Contact w/someone who lives/traveled outside [place] past 30 days?: No Exposure to someone with infectious disease in past 14 days?: No Do you have a fever (greater than 100.4 F or 38 C)?: No Have you tested positive for COVID-19: No Exposed to someone with COVID-19 in past 14 days?: No Do you have a sore throat?: No Do you have a cough?: No Do you have any weakness?: No Do you have any diarrhea?: No Are you experiencing any unusual bleeding?: No Do you have any muscle aches/pain?: No Do you have any abdominal pain?: No Are you experiencing loss of taste or smell?: No [facility] Anesthesia Checklist Patient Identification Patient Identification: Arm Band and Verbal (Name & ) Structural Data Admitted From: Emergency Dept Planned Operative Procedure/s: D & C Consent for Planned Operative Procedure(s) Verified: Yes Verified Documents: Surgical Consent and History and Physical NPO Status Verified Time NPO: 15:00 Chart Verification Results Verified: CBC Additional verifications Anesthesia Reactions: No Airway Assessment Mallampati Score:: Class III C-Spine Mobility Assessed: Yes TMJ Mobility Assessed: Yes Dentition: Good Dentition Neurological Assessment Level of Consciousness: Awake Hx Seizures: No Numbness or tingling in extremities: No Anesthesia Plan Anesthesia Risk discussed: Yes Anesthesia Plan: Verified ASA Class: II (E) Anesthesia Type: General
--- NOTE | 2024-04-24 20:00 | EXP.OP.NOTE ---
Date of procedure: 04/24/24 Pre-op Diagnosis:: Missed , heavy bleeding Post-op Diagnosis:: Missed , heavy bleeding Procedure performed:: Dilation and evacuation with [place]'s actual Surgeon:: Andrew Lantigua MD NEWSPAPER PRESS OPERATOR APPRENTICE:: Kala Giron Anesthesia: PRITI Estimated blood loss (mL): 50 Clinical Note:: She is a 33-year-old 4 para 1 aborta 3 now who has seen in the ER. She had an ultrasound 12 days ago that showed a missed at about 6 weeks gestational age. She elected not to have a dilation and evacuation and was waiting for the tissue to pass. Tonight she began to have extremely heavy bleeding and in fact soaked a couple of checks in the ER. As result of that she was offered dilation and evacuation. We discussed the risk of surgery prior to her procedure of bleeding, infection, perforation. All questions were answered and consents were signed. Operative findings:: She had an anteverted bulky uterus. There was copious tissue in the cervix. She was bleeding profusely when she came into the OR. There was approximately 500 cc of blood on the mya. Operative note:: She was taken to the operating room where general anesthesia was found be adequate. She was prepped and draped normal sterile fashion lithotomy position. A weighted speculum is placed in the vagina and the anterior lip of the cervix was grasped with a tenaculum. Using a 10 mm curved [place] suction curette I evacuated the uterine contents. This was followed by a gentle curettage. There was copious tissue recovered. At the end of the procedure she was not actively bleeding and she tolerated procedure well. She was taken the recovery room in excellent condition. All sponge, instrument counts were correct. Estimated blood loss intraoperatively was approximately 50 cc. Condition: stable Disposition: PACU Specimens:: Retained products of conception. Complications:: None
--- NOTE | 2024-04-24 20:06 | EXP.ANES.I ---
[facility] Anesthesia Record Part I Anesthesia Record I Intake, IV Amount: 500 Hydration: Adequate Estimated blood loss (mL): 50 Urine output (mL): 0 Blood Pressure: 112/65 SaO2: 97 Pulse Rate: 144 (Fluids given) Airway Patency: Patent Respiratory Rate: 17 Temperature: 97.8 F Patient is:: Awake Stable to PACU at:: 20:00
[2024-04-24] MEDS: RHO(D) IMMUNE GLOBULIN 1,500 UNIT (300MCG) SYRINGE 300 MCG IM (20:25)
[2024-04-24 20:55] LABS: Hematocrit 33.9 % (37.0-47.0)
[2024-04-24 20:58] LABS: Hemoglobin 11.7 g/dL (12.2-16.2)
--- NOTE | 2024-04-24 20:58 | SUR.PHASEI ---
2019- lab at to draw stat h&h. 2024- Rhogam IM injection given per orders in pacu.
[2024-04-25 11:46] VITALS: BP 120/83; PULSE 98; RESP 17; TEMP 36.6; O2SAT 97
--- NOTE | 2024-04-25 11:46 | P.PNANES_ITS ---
[facility] Anesthesia Record Part II Anesthesia Record Part II Discharge Time: 20:30 Destination: Surgical Day Care (OP Surgery) PACU nurse assessment reviewed?: Yes Patient Condition:: Good Anesthesia Complications:: None Swallowing reflex intact?: Yes Airway Patency: Patent Cyanosis?: No Blood Pressure: 120/83 SaO2: 97 Respiratory Rate: 17 Pulse Rate: 98 Temperature: 97.8 F Mental Status: Alert & Oriented Pain level:: 0 Nausea and/or vomitting:: None Intake, IV Amount: 0 Hydration: Adequate
== END 2024-04-24 21:00 | disposition home or self-care (01) ==
PROVIDERS: Nurse Practitioner Obstetrics & Gynecology; Emergency Provider Student in an Organized Health Care Education/Training Program; PCP Family Medicine
PROC: (CPT 59820; principal; 2024-04-24 19:00)
DX: O02.1 Missed abortion (principal); R10.30 Lower abdominal pain, unspecified; N93.9 Abnormal uterine and vaginal bleeding, unspecified; O03.9 Complete or unspecified spontaneous abortion without complication
CPT/HCPCS: 59820; 76817; 80053; 84702; 85014; 85018; 85025; 86850; 96360; 99285; J0330; J1100; J2250; J2405; J2790; J7120

== ENCOUNTER 2024-05-03 10:45 | Outpatient (CLI) | payer BC, SELFPAY ==
[2024-05-03 11:45] LABS: HCG,Quantitative 412 mIU/ml (0-5.42)
== END 2024-05-03 23:59 | disposition home or self-care (01) ==
LOC: LAB 10:46
PROVIDERS: Visit Provider Nurse Practitioner Obstetrics & Gynecology
DX: O20.0 Threatened abortion (principal)
CPT/HCPCS: 36415; 84702

== ENCOUNTER 2024-05-10 13:10 | Outpatient (CLI) | payer BC, SELFPAY ==
[2024-05-10 14:46] LABS: HCG,Quantitative 87 mIU/ml (0-5.42)
== END 2024-05-10 23:59 | disposition home or self-care (01) ==
LOC: LAB 13:11
PROVIDERS: Visit Provider Nurse Practitioner Obstetrics & Gynecology
DX: O03.9 Complete or unspecified spontaneous abortion without complication (principal)
CPT/HCPCS: 36415; 84702

== ENCOUNTER 2024-05-14 14:50 | Outpatient (CLI) | payer BC, SELFPAY ==
[2024-05-14 15:57] LABS: HCG,Quantitative 46 mIU/ml (0-5.42)
== END 2024-05-14 23:59 | disposition home or self-care (01) ==
PROVIDERS: Visit Provider Nurse Practitioner Obstetrics & Gynecology
DX: O03.9 Complete or unspecified spontaneous abortion without complication (principal)
CPT/HCPCS: 36415; 84702

== ENCOUNTER 2024-05-16 10:18 | Outpatient (CLI) | payer BC, SELFPAY ==
[2024-05-16 11:35] LABS: HCG,Quantitative 38 mIU/ml (0-5.42)
[2024-05-16 12:15] LABS: Free Thyroxine Index 2.4 ug/dL (5.93-13.13); T4 (Thyroxine) 7.6 ug/dl (5.53-11.0); Triiodothryronine (T3) Uptake 32 % (23.5-40.5)
[2024-05-16 12:29] LABS: Thyroid Stimulating Hormone 2.29 uIU/mL (0.465-4.68)
[2024-05-18 03:47] LABS: Protein C Antigen 88 % (60-150)
[2024-05-18 12:27] LABS: Protein S Antigen, Total 59 % (60-150); Protein S, Free 74 % (61-136)
[2024-05-20 21:08] LABS: Anti Mullerian Hormone (AMH) 8.26 ng/mL (.)
[2024-05-24 10:59] LABS: Miscellaneous Test SCANNED IMAGE
[2024-06-04 13:08] LABS: APTT 29.5 sec (.); Anti-Cardiolipin Antibody IgG <10 GPL (.); Anti-Cardiolipin Antibody IgM 19 MPL (.); Beta-2 Glycoprotein I Ab, IgA <10 SAU (.); Beta-2 Glycoprotein I Ab, IgG <10 SGU (.); Beta-2 Glycoprotein I Ab, IgM <10 SMU (.); Hexagonal Phase Phospholipid 12 sec (.); INR 1.1 ratio (.); Prothrombin Time 11.8 sec (.); Thrombin Time 20.4 sec (.)
== END 2024-05-16 23:59 | disposition home or self-care (01) ==
LOC: LAB 10:19
PROVIDERS: Visit Provider Nurse Practitioner Obstetrics & Gynecology
DX: N96 Recurrent pregnancy loss (principal); Z48.89 Encounter for other specified surgical aftercare
CPT/HCPCS: 36415; 81241; 82397; 84436; 84443; 84479; 84702; 85302; 85305; 85306; 85597; 85598; 85610; 85613; 85670; 85730; 86146; 86147

== ENCOUNTER 2024-05-23 14:03 | Outpatient (CLI) | payer BC, SELFPAY ==
[2024-06-11 09:06] LABS: Miscellaneous Test SCANNED IMAGE
== END 2024-05-23 23:59 | disposition home or self-care (01) ==
PROVIDERS: Visit Provider Nurse Practitioner Obstetrics & Gynecology
DX: N96 Recurrent pregnancy loss (principal)
CPT/HCPCS: 88230; 88262

== ENCOUNTER 2024-08-21 09:40 | Outpatient (CLI) | payer BC, SELFPAY ==
[2024-09-09 12:26] LABS: Anti-Cardiolipin Antibody IgG <10 GPL (.); Anti-Cardiolipin Antibody IgM 15 MPL (.); Beta-2 Glycoprotein I Ab, IgA <10 SAU (.); Beta-2 Glycoprotein I Ab, IgG <10 SGU (.); Beta-2 Glycoprotein I Ab, IgM <10 SMU (.); Hexagonal Phase Phospholipid 8 sec (.); INR 1.1 ratio (.); Prothrombin Time 11.7 sec (.); Thrombin Time 17.6 sec (.)
== END 2024-08-21 23:59 | disposition home or self-care (01) ==
LOC: LAB 09:40
PROVIDERS: Visit Provider Nurse Practitioner Obstetrics & Gynecology
DX: R53.83 Other fatigue (principal)
CPT/HCPCS: 36415; 85597; 85598; 85610; 85613; 85670; 85730; 86146; 86147